=== PATIENT | female | born 1940 | race Caucasian/White ===

== ENCOUNTER 2023-03-14 09:43 | Emergency (ER) | payer MEDICARE ==
[~2023-03-14] VITALS: Ht 157.5 cm; Wt 56.2 kg
[2023-03-14 09:45] VITALS: BP 131/71; PULSE 67; RESP 20
[2023-03-14 10:38] LABS: APPEARANCE,URINE CLOUDY (CLEAR); BILIRUBIN,URINE NEGATIVE (NEGATIVE); COLOR,URINE LIGHT-YELLOW (YELLOW); GLUCOSE, URINE (UA) NEGATIVE (NEGATIVE); KETONES,URINE NEGATIVE (NEGATIVE); LEUKOCYTE ESTERASE ,URINE 500 Leu/uL (NEGATIVE); NITRATE,URINE 2+ (NEGATIVE); PH,URINE 6.5 (5.0-8.0); PROTEIN,URINE NEGATIVE (NEGATIVE); UROBILINOGEN,URINE 0.2 mg/dL (0.2-1.0)
[2023-03-14 10:39] LABS: ADD UA MICROSCOPIC YES
[2023-03-14 10:48] LABS: BACTERIA,URINE FEW /HPF (None Seen); SQUAMOUS EPITHELIAL CELL,UR RARE /HPF (0-2); WBC,URINE TNTC /HPF (0-1)
[2023-03-14] MEDS ORDERED: CEPH500T PO (11:19)
[2023-03-14] MEDS ORDERED: PHEN-847 PO (11:19)
== END 2023-03-14 11:28 | disposition home or self-care (01) ==
LOC: EDH 09:43
DX: N30.00 Acute cystitis without hematuria (principal); Z90.49 Acquired absence of other specified parts of digestive tract; Z88.5 Allergy status to narcotic agent
CPT/HCPCS: 81001; 87077; 87088; 87186